=== PATIENT | female | born 1995 | race Two or more races ===

== ENCOUNTER → 2024-11-20 | Outpatient (CLI) | payer BC, SELFPAY ==
[2024-11-21 07:18] LABS: BVAG Candida Negative (Negative); Bacterial Vaginosis Markers Negative (Negative); Candida glabrata Negative (Negative); Candida krusei PCR Negative (Negative); Trichomonas Negative (Negative)
== END | disposition home or self-care (01) ==
LOC: SLDO 15:47
PROVIDERS: Referring Provider Physician Assistant Medical; Visit Provider Physician Assistant Medical
DX: A59.01 Trichomonal vulvovaginitis (principal); B37.89 Other sites of candidiasis; N76.0 Acute vaginitis
CPT/HCPCS: 81514

== ENCOUNTER 2024-12-02 21:54 | Emergency (ER) | payer BC, SELFPAY ==
[2024-12-02 21:55] VITALS: BMI 47.8
[2024-12-02 22:09] VITALS: BP 136/92; PULSE 109; RESP 20; TEMP 36.7; O2SAT 98
--- NOTE | 2024-12-02 22:10 | XR_ITS ---
Examination: Complete OB ultrasound, less than 14 weeks, transabdominal Date and time of exam: December 02, 2024 1019 hrs. Indications: Onset pelvic cramping today Technique: Obstetrical ultrasound images less than 14 weeks performed via transabdominal imaging Findings: A normal shaped single intrauterine gestation is present in the uterus. CRL 3.6 cm corresponds to 10 weeks 4 days gestational age Cardiac motion 171 BPM Ultrasonographic survey of visible and placental structures unremarkable. Amniotic fluid volume appears appropriate for this estimated gestational age. Right ovary obscured by bowel gas Left ovary 3.1 arterial flow Impression:. Viable intrauterine gestation 10 weeks 4 days
--- NOTE | 2024-12-02 22:11 | PD.EDRME ---
Rapid Medical Screening Exam RME Arrival date/time: 12/02/24 21:54 29 yo f present to ED for c/o n/v/d, + 10 week I have greeted and performed a focused initial assessment of this patient. A comprehensive ED assessment and evaluation of the patient, analysis of all test results, and completion of the medical decision making process will be conducted by additional ED providers. Chief Complaint: Nausea/Vomiting/Diarrhea Time Seen by Provider: 12/02/24 21:57 Vital signs: Vital Signs Temperature 98.1 F 12/02/24 22:09 Pulse Rate 109 H 12/02/24 22:09 Respiratory Rate 20 12/02/24 22:09 Blood Pressure 136/92 H 12/02/24 22:09 Pulse Oximetry (%) 98 12/02/24 22:09 Oxygen Delivery Method Room Air 12/02/24 22:09
[2024-12-02 22:25] LABS: Basophils % (Auto) 0 % (0-2.5); Eosinophils % (Auto) 0 % (0-10); Hematocrit 38.4 % (36.0-46.0); Hemoglobin 12.9 g/dL (12.0-16.0); Immature Granulocytes % (Auto) 0 % (0-0); Immature Granulocytes Auto 0.04 Thou/mm3 (0.00-0.00); Lymphocytes % (Auto) 6 % (10-50); Mean Corpuscular HGB Conc 33.6 g/dl (31.0-37.0); Mean Corpuscular Hemoglobin 28.5 pg (25.0-35.0); Mean Corpuscular Volume 85 fL (80-100); Monocytes # (Auto) 0.3 Thou/mm3 (0.0-0.8); Monocytes % (Auto) 2 % (0-12); Neutrophils # (Auto) 14.1 Thou/mm3 (1.8-7.7); Neutrophils % (Auto) 91 % (37-80); Nucleated Red Blood Cell % 0 /100 WBC (0); Platelet Count 233 Thou/mm3 (140-440); RDW Standard Deviation 44.5 fL (36.4-46.3); Red Blood Count 4.53 Miln/mm3 (4.00-5.20); White Blood Count 15.5 Thou/mm3 (3.6-11.0)
[2024-12-02 22:55] LABS: Alanine Aminotransferase 37 U/L (10-49); Albumin, Serum 4.1 gm/dL (3.5-5.0); Albumin/Globulin Ratio 1.4 (1.2-2.2); Alkaline Phosphatase 90 U/L (46-116); Anion Gap 8 (7-16); Aspartate Amino Transferase 21 U/L (0-34); BUN/Creatinine Ratio 12 Ratio (12-20); Bilirubin,Total 0.4 mg/dL (0.3-1.2); Blood Urea Nitrogen 7 mg/dL (9-23); Calcium 8.8 mg/dL (8.3-10.6); Calcium (Corrected) 8.8 mg/dL (8.5-10.1); Carbon Dioxide 23.2 mMol/L (20.0-31.0); Chloride 107 mMol/L (98-107); Creatinine (Component) 0.6 mg/dL (0.6-1.3); Estimated Creatinine Clearance 178.8 mL/min (>60); Globulin 2.9 gm/dL (2.3-3.5); Glucose 114 mg/dL (74-106); Osmolality,Calculated 274 (275-295); Potassium 3.8 mMol/L (3.4-5.1); Sodium 138 mMol/L (136-145); eGFR > 60 See Note
[2024-12-02] MEDS: SODIUM CHLORIDE 0.9% 1000 ML 1,000 ML 999 ML IV (23:12)
[2024-12-02] MEDS: METOCLOPRAMIDE INJ 5 MG/ML VIAL 2 ML 10 MG IVP (23:13)
[2024-12-02 23:17] VITALS: BP 109/64; PULSE 106; RESP 20; TEMP 38.1; O2SAT 98
[2024-12-02 23:19] LABS: Beta HCG,Quantitative 47573 mIU/mL (<5.0)
--- NOTE | 2024-12-02 23:21 | PD.EDNV ---
Nausea/Vomit./Diarrhea-RME/HPI General Chief complaint: Nausea/Vomiting/Diarrhea Stated complaint: ABD PAIN, N/V PT 10WKS PREG Time Seen by Provider: 12/02/24 21:57 Arrival date/time: 12/02/24 21:54 Limitations: no limitations RME / HPI RME / HPI Narrative: 12/02/24 21:54 29 yo f present to ED for c/o n/v/d, + 10 week I have greeted and performed a focused initial assessment of this patient. A comprehensive ED assessment and evaluation of the patient, analysis of all test results, and completion of the medical decision making process will be conducted by additional ED providers. ----- Dr. Small's Main ED Evaluation: 29yo female who is 10 weeks gestation presents to the ED for complaints of N/V/D. Patient states her symptoms started at 1300, reporting she's had persistent N/V/D since. She states she has been unable to keep anything down, so she came in for evaluation. Here in the ED, patient is febrile. She denies any dysuria, shortness of breath or any other associated symptoms. Patient states her kids at home are sick with similar symptoms. LMP was 08/28/24. Related Data Home Medications ?Medication ?Instructions ?Recorded ?Confirmed vit no.95-ferrous 1 tab PO QDAY 05/19/19 04/18/23 fumarate 28 mg-folic acid 800 mcg tablet () calcium 600 mg (as 1 tab PO BID 04/18/23 04/18/23 carbonate)-vitamin D3 10 mcg (400 unit) tablet Previous Rx's ?Medication ?Instructions ?Recorded docusate sodium 100 mg capsule 100 mg PO BID #40 caps 04/19/23 (Colace) hydrocodone 5 mg-acetaminophen 325 1 tab PO Q6H PRN pain (scale score 04/19/23 mg tablet 7-10) #20 tabs ibuprofen 600 mg tablet 600 mg PO Q8H PRN pain (scale 04/19/23 score 4-6) #15 tabs cephalexin 500 mg capsule 500 mg PO TID #21 caps 12/03/24 ondansetron 4 mg disintegrating 4 mg PO Q6H PRN nausea and 12/03/24 tablet vomiting #14 tabs Allergies Allergy/AdvReac Type Severity Reaction Status Date / Time No Known Allergies Allergy Verified 04/19/23 12:35 Review of Systems Review of Systems Systems Reviewed: All systems reviewed, normal except as documented Past Medical History Past Medical History NEUROLOGIC: Negative Neurological Disorders or Seizures CARDIAC: Negative Cardiac Disorders or Congestive Heart Failure RESPIRATORY: Negative Chronic Obstructive Pulmonary Disease (COPD), Asthma or Pneumonia GASTROINTESTINAL: Positive Gastrointestinal Disorders and Gall Bladder Disease; Negative Hepatitis or Colorectal Cancer GENITOURINARY: Negative Genitourinary Disorders, Renal Disease or Prostate Cancer REPRODUCTIVE: Positive Previous Pregnancies; Negative Breast Cancer, Pelvic Inflammatory Disease or Testicular Cancer MUSCULOSKELETAL: Negative Musculoskeletal Disorders or Bone Cancer ENDOCRINE: Negative Endocrine Disorders, Diabetes Mellitus Type 1 or Diabetes Mellitus Type 2 HEMATOLOGIC: Negative Blood Disorders PSYCHO/SOCIAL: Negative Depression or Anxiety OTHER HISTORY: Positive Hospitalization (CHILDBIRTHx3); Negative Autoimmune Disease, Down Syndrome, Developmental Delay, Shingles, Falls, Blood Transfusions, Blood Transfusion Reaction, Anesthesia Reactions, Organ Transplant, Chemotherapy, Radiation Therapy, Hyperbaric Therapy, MRSA, VRSA, Vancomycin-Resistant Enterococci, Human Immunodeficiency Virus (HIV), Chicken Pox, Measles, Mumps, Rubella (Upper [place] Measles), Pertussis, Clostridium Difficile, Cancer, Breast Cancer, Cervical Cancer, Colorectal Cancer, Lung Cancer, Ovarian Cancer, Prostate Cancer or Testicular Cancer Family History FAMILY HISTORY: Positive Family Respiratory Disorders (father; valley fever) and Family Cardiac Disorders (mother high blood pressure); Negative Family Psychiatric Problems, Family Gastrointestinal Problems, Family Cancer, Family Surgery or Family Anesthesia Reaction Surgical History SURGICAL: Negative Cardiac Surgery, Endocrine Surgery, Abdominal Surgery, Nephrectomy, Joint Replacement, Neurologic Surgery, Section or Organ Transplant Social History SMOKING STATUS: Never smoker SECOND HAND EXPOSURE: No SUBSTANCE USE: does not use ED Exam General Limitations: Present no limitations General appearance: Present alert, in no apparent distress and other (is actively vomiting) Head Head exam: Present atraumatic Eye Eye exam: Present normal appearance, PERRL and EOMI ENT ENT exam: Present normal exam, normal oropharynx and mucous membranes dry Neck Neck exam: Present normal inspection, full ROM and trachea midline Chest Chest inspection: Present normal inspection and symmetric chest wall rise Respiratory Respiratory exam: Present normal lung sounds bilaterally Cardiovascular Cardiovascular exam: Present regular rate, normal rhythm and normal heart sounds Abdominal Exam Abdominal exam: Present soft and normal bowel sounds Extremities Exam Extremities exam: Present normal inspection and full ROM Back Exam Back exam: Present normal inspection and full ROM Neurological Exam Neurological exam: Present alert, oriented X3 and CN II-XII intact Psychiatric Psychiatric exam: Present normal affect and normal mood Skin Skin exam: Present warm, dry, intact and normal color Course Course Course Narrative: 2339: Sepsis alert initiated. Orders made at this time are congruent with ED Adult Sepsis Order List. Re-evaluation is to be completed. 2311: NS IVF started. Quality Measures none Orders Category Date Time Status Bedside COVID-19 Antigen Test NOW Care 12/02/24 23:20 Completed Bedside Influenza A&B Antigen Test NOW Care 12/02/24 23:20 Completed Insert IV STAT Care 12/02/24 22:10 Completed US OB <= 14 weeks fetus Stat Exams 12/02/24 22:10 Completed ABO/RH Type Stat Lab 12/02/24 22:16 Completed Beta HCG,Quantitative Stat Lab 12/02/24 22:16 Completed Blood Culture (Lab) Stat Lab 12/02/24 23:50 Results CBC Stat Lab 12/02/24 22:16 Completed CMP [Comprehensive Metabolic Panel] Stat Lab 12/02/24 22:16 Completed Lactic Acid [Lactate (Lactic Acid)] Stat Lab 12/02/24 23:55 Completed PCT [Procalcitonin] Stat Lab 12/02/24 23:55 Completed UA [Urinalysis] Stat Lab 12/03/24 00:14 Completed UA [Urinalysis] Stat Lab 12/03/24 01:45 Completed Metoclopramide Inj [Reglan Inj] Med 12/02/24 22:10 Discontinued 10 mg IVP X1 ONE Ondansetron Inj [Zofran Inj] Med 12/03/24 01:50 Discontinued 4 mg IV X1 ONE Sodium Chloride 0.9% 1000 ml [Ns] 1,000 ml Med 12/02/24 22:10 Discontinued IV 999 mls/hr Sodium Chloride 0.9% 1000 ml [Ns] 1,000 ml Med 12/03/24 01:44 Discontinued IV 999 mls/hr cefTRIAXone/D5w 1gm IV premix [Rocephin/D5w 1gm IV Med 12/03/24 02:46 Discontinued premix] 1 gm in 50 ml IV X1 Vital Signs Vital signs: Vital Signs Temperature 98.1 F 12/02/24 22:09 Pulse Rate 109 H 12/02/24 22:09 Respiratory Rate 20 12/02/24 22:09 Blood Pressure 136/92 H 12/02/24 22:09 Pulse Oximetry (%) 98 12/02/24 22:09 Oxygen Delivery Method Room Air 12/02/24 22:09 Nausea/Vomiting/Diarrhea MDM Narrative MDM Narrative:: Scribe Attestation: 12/02/24 Kady Sexton am scribing for and in the presence of Dr. Small. Patient data External records reviewed:: [facility] previous records (Per chart review, patient has no relevant previous ED visits.) Clinical information provided by:: patient Social determinants that could affect healthcare access:: none Patient has the following chronic illnesses:: none How is presenting disease/condition affected by chronic disease/condition?: no chronic disease Evaluation data The following diagnostics were reviewed and interpreted by me:: lab results and radiology exam(s) Lab and/or radiology exams considered but not ordered:: none Interpretation Summary: WBC count is elevated at 15.5, CMP is normal, HCG is negative, according to my interpretation. --------- Medications / Prescriptions Medications / Prescriptions considered but not ordered:: none Medication administrations:: Medication Administration History Discontinued Medications Sodium Chloride (Ns) 1,000 mls @ 999 mls/hr IV .Q1H1M ONE Stop: 12/02/24 23:10 Last Infusion: 12/03/24 00:18 Dose: Infused Documented By: Admin: 12/02/24 23:12 Dose: 999 mls/hr Documented By: GM Sodium Chloride (Ns) 1,000 mls @ 999 mls/hr IV .Q1H1M ONE Stop: 12/03/24 02:44 Last Infusion: 12/03/24 02:46 Dose: Infused Documented By: Admin: 12/03/24 01:52 Dose: 999 mls/hr Documented By: BD Ceftriaxone Sodium/Dextrose (Rocephin/D5w 1gm Iv Premix) 1 gm in 50 mls @ 100 mls/hr IV X1 ONE Stop: 12/03/24 03:15 Last Admin: 12/03/24 02:54 Dose: 100 mls/hr Documented By: BD Metoclopramide HCl (Metoclopramide Inj 5 Mg/Ml Vial 2 Ml) 10 mg IVP X1 ONE; Protocol Stop: 12/02/24 22:11 Last Admin: 12/02/24 23:13 Dose: 10 mg Documented By: GM Ondansetron HCl (Ondansetron Inj 2 Mg/Ml Inj 2 Ml) 4 mg IV X1 ONE; Protocol Stop: 12/03/24 01:51 Last Admin: 12/03/24 01:56 Dose: 4 mg Documented By: PEGGY see above Consultations Consultation(s) initiated? (list below): No Diagnosis Nausea Differential Diagnosis: dehydration and other (viral syndrome, electrolyte abnormality) Most likely diagnosis given after review of the tests above:: see clinical impression below Admission Indicated Admission indicated?: not indicated Admission Request Was there a request for admission?: No Disposition Plan Disposition Plan: other (specify) (Signed out pending CT scan to Dr. Sotelo) Discharge Plan Plan Patient Disposition: HOME (Self Care) Patient condition on transfer: Stable Prescriptions/Referrals Prescriptions/Med Rec: New cephalexin 500 mg capsule 500 mg PO TID Qty: 21 0RF ondansetron 4 mg tablet,disintegrating 4 mg PO Q6H PRN (Reason: nausea and vomiting) Qty: 14 0RF No Action PNV cmb#95-ferrous fumarate-FA [] 28 mg iron- 800 mcg Tablet 1 tab PO QDAY calcium carbonate-vitamin D3 600 mg-10 mcg (400 unit) tablet 1 tab PO BID Patient Comments: TAKE 1 TABLET BY MOUTH TWICE A DAY docusate sodium [Colace] 100 mg capsule 100 mg PO BID Qty: 40 0RF hydrocodone-acetaminophen 5-325 mg tablet 1 tab PO Q6H MDD 4 PRN (Reason: pain (scale score 7-10)) Qty: 20 0RF ibuprofen 600 mg tablet 600 mg PO Q8H PRN (Reason: pain (scale score 4-6)) Qty: 15 0RF Referrals: Malaika Tan PA-C [Primary Care Provider] - In 1 week Problem List Clinical Impression: Dehydration, Vomiting and diarrhea Patient/Caregiver Discharge Instructions Education Materials: ED Dehydration (Adult), ED Diet for Vomiting or ..., ED CYSTITIS Female Adult Additional Instructions: General Adult Discharge Instructions DISCHARGE INSTRUCTIONS Even though you have been discharged from the Emergency Department, there are several things that you should do to ensure that you receive proper care: 1. DO READ your discharge instructions as these contain important information concerning your medical care. 2. If medication has been prescribed for your condition, fill the prescription as soon as possible and follow the directions on the medication. 3. RETURN AT ONCE TO THE EMERGENCY DEPARTMENT if you have any problems or concerns. These include but are not limited to fever, worsening pain(belly, chest, head, etc?), worsening shortness of breath, uncontrollable bleeding, inability to tolerate food and water, or any condition that makes you question your well-being. Also, if your symptoms do not improve in the next 12-24 hours, return to the ER or seek medical care immediately. 4. Be sure to follow up with your regular physician or specialist as instructed at discharge as this is the best way to ensure that you receive the very best of care. If you do not have a primary care physician, please contact a physician group and make an appointment. 5. Please visit [email or web address] for coupons regarding your prescriptions. It is a free service for you to use and can help reduce the cost of your medication. We would like to thank you for coming today and our hope is that we served you and your family well during your stay Print Language: Spanish Stand Alone Forms: Nyla Award Info., Patient Portal Info Letter
--- NOTE | 2024-12-02 23:41 | PRELIM_ITS ---
Obstetric ultrasound (transabdominal) with Doppler and wave Doppler spectral analysis. December 02, 2024 2219 hours Clinical history: Abdomen cramping Technique: Real-time ultrasound was performed using Duplex scanning including arterial inflow, venous outflow, color and spectral Doppler analysis of both ovaries. Comparison: None. Findings: There is an intrauterine gestation with a single live fetus of mean gestational age 10 weeks and 5 days (CRL= 3.85 cm). cardiac activity is present at heart rate of 171 beats per minute. The yolk sac measures 0.4 cm. The uterus measures 13.7 x 6.5 x 7.5 cm. The right ovary was not visualized. The left ovary measures 3.1 x 1.6 x 1.6 cm and is unremarkable. Normal blood flow in the left ovary with normal wave Doppler spectral analysis. There is no free fluid in the pelvis. Impression: Intrauterine gestation with a single live fetus of mean gestational age 10 weeks and 5 days. Report Electronically Signed By: Mendoza Casanova 12/02/2024 11:41:02 PM [EST]
--- NOTE | 2024-12-02 23:41 | PC.NURSE ---
maternal sepsis called at 2340
--- NOTE | 2024-12-02 23:53 | PC.NURSE ---
ob nurse mouna came down to check heart tones
--- NOTE | 2024-12-02 23:55 | PC.NURSE ---
Addendum entered by Meghan Rowe RN, RN 12/03/24 00:13: Primary nurse notified. Original Note: Came from labor and delivery to assess heart tones on patient. Unable to audibly detect heart tones due to maternal size and gestational age of fetus. Charge nurse, Theron, stated that ultrasound had resulted.
[2024-12-03 00:22] LABS: Collection Type, Urine Voided
[2024-12-03 00:44] LABS: Bacteria,Urine 2+; Bilirubin,Urine Negative (Negative); Blood,Urine Trace (Negative); Clarity,Urine Turbid (Clear/Hazy); Color,Urine Yellow (Lt Yel-Yel); Glucose, Urine Negative (Negative); Ketones,Urine 4+ (Negative); Leukocyte Esterase,Urine Positive (Negative); Nitrite,Urine Negative (Negative); PH,Urine 6.5 (5.0-7.0); Protein,Urine 1+ (Neg - Trace); RBC,Urine 49 /hpf (0-3); Specific Gravity,Urine 1.039 (1.001-1.035); Squamous Epithelial Cell,Urine 21 /hpf (0-5); Urobilinogen,Urine Negative mg/dL (0.0-1.0); WBC,Urine 22 /hpf (0-5)
[2024-12-03 00:56] LABS: Procalcitonin < 0.04 ng/ml (0.0-0.49)
[2024-12-03 01:48] VITALS: BP 101/68; PULSE 111; RESP 16; TEMP 37.1; O2SAT 98
[2024-12-03] MEDS: SODIUM CHLORIDE 0.9% 1000 ML 1,000 ML 999 ML IV (01:52)
[2024-12-03] MEDS: ONDANSETRON INJ 2 MG/ML INJ 2 ML 4 MG IV (01:56)
[2024-12-03 02:00] LABS: Collection Type, Urine Clean Catch
[2024-12-03 02:19] LABS: Bacteria,Urine Rare; Bilirubin,Urine Negative (Negative); Blood,Urine Negative (Negative); Clarity,Urine Turbid (Clear/Hazy); Color,Urine Yellow (Lt Yel-Yel); Glucose, Urine Negative (Negative); Ketones,Urine 4+ (Negative); Leukocyte Esterase,Urine Positive (Negative); Nitrite,Urine Negative (Negative); Protein,Urine 1+ (Neg - Trace); RBC,Urine 12 /hpf (0-3); Specific Gravity,Urine 1.034 (1.001-1.035); Squamous Epithelial Cell,Urine 3 /hpf (0-5); Urobilinogen,Urine Negative mg/dL (0.0-1.0); WBC,Urine 6 /hpf (0-5)
[2024-12-03] MEDS: cefTRIAXone/D5w 1gm IV premix 1 GM/50 ML BAG IV (02:54)
[2024-12-03 03:20] VITALS: BP 102/58; PULSE 107; RESP 16; TEMP 37.2; O2SAT 100
== END 2024-12-03 03:23 | disposition home or self-care (01) ==
PROVIDERS: Physician Assistant; Emergency Provider Emergency Medicine; PCP Physician Assistant
DX: O99.281 Endocrine, nutritional and metabolic diseases complicating pregnancy, first trimester (principal); E86.0 Dehydration; O21.9 Vomiting of pregnancy, unspecified; O26.891 Other specified pregnancy related conditions, first trimester; R19.7 Diarrhea, unspecified; Z3A.10 10 weeks gestation of pregnancy; D72.829 Elevated white blood cell count, unspecified
CPT/HCPCS: 36415; 76801; 80053; 81001; 83605; 84145; 84702; 85025; 86900; 86901; 87040; 87400; 87811; 96361; 96374; 99284; J0696; J2405; J2765; J7030

== ENCOUNTER → 2024-12-07 | Outpatient (CLI) | payer BC, SELFPAY ==
[2024-12-07 16:39] LABS: Misc Send Out* See Sep Rpt
[2024-12-07 17:27] LABS: Basophils % (Auto) 0 % (0-2.5); Eosinophils # (Auto) 0.1 Thou/mm3 (0.0-0.5); Eosinophils % (Auto) 1 % (0-10); Hematocrit 38.5 % (36.0-46.0); Hemoglobin 12.9 g/dL (12.0-16.0); Immature Granulocytes % (Auto) 0 % (0-0); Immature Granulocytes Auto 0.02 Thou/mm3 (0.00-0.00); Lymphocytes # (Auto) 2.9 Thou/mm3 (1.0-4.8); Lymphocytes % (Auto) 34 % (10-50); Mean Corpuscular HGB Conc 33.5 g/dl (31.0-37.0); Mean Corpuscular Hemoglobin 28.3 pg (25.0-35.0); Mean Corpuscular Volume 84 fL (80-100); Monocytes # (Auto) 0.4 Thou/mm3 (0.0-0.8); Monocytes % (Auto) 4 % (0-12); Neutrophils # (Auto) 5.3 Thou/mm3 (1.8-7.7); Neutrophils % (Auto) 61 % (37-80); Nucleated Red Blood Cell % 0 /100 WBC (0); Platelet Count 285 Thou/mm3 (140-440); RDW Standard Deviation 44.4 fL (36.4-46.3); Red Blood Count 4.56 Miln/mm3 (4.00-5.20); White Blood Count 8.7 Thou/mm3 (3.6-11.0)
[2024-12-07 17:39] LABS: Glucose Estimated Average 103 mg/dL (80-131); Hemoglobin A1C 5.2 % Hgb (4.8-6.0)
[2024-12-07 17:44] LABS: Creatinine (Component) 0.6 mg/dL (0.6-1.3); Glucose 100 mg/dL (74-106); eGFR > 60 See Note
[2024-12-07 17:55] LABS: Hepatitis B Surface Antigen Non Reactive (Non React); Rubella, IgG Antibody Reactive (Immune)
[2024-12-07 18:09] LABS: HIV (1&2) Antibody Rapid Non-Reactive
[2024-12-07 18:32] LABS: Beta HCG,Quantitative 43777 mIU/mL (<5.0)
[2024-12-12 15:31] LABS: HCV RNA, PCR <15 NOT DETECTED IU/mL
[2024-12-13 06:28] LABS: HCV RNA, PCR Log IU <1.18 NOT DETECTED Log IU/mL; HIV Ag/Ab, 4th Gen NON-REACTIVE
== END | disposition home or self-care (01) ==
PROVIDERS: PCP Physician Assistant; Referring Provider Specialist; Visit Provider Specialist
DX: Z34.81 Encounter for supervision of other normal pregnancy, first trimester (principal)
CPT/HCPCS: 36415; 82565; 82947; 83036; 84702; 85025; 86703; 86762; 86850; 86900; 86901; 87340; 87389; 87522

== ENCOUNTER → 2024-12-07 | Outpatient (CLI) | payer BC, SELFPAY ==
[2024-12-07 15:58] LABS: Collection Type, Urine Clean Catch; WBC,Urine 0 /hpf (0-5)
[2024-12-07 16:45] LABS: Amphetamine/Methamp Scrn,U Negative (Negative); Barbiturate Screen,Urine Negative (Negative); Benzodiazepines Screen,Urine Negative (Negative); Benzoylecgonine Screen, Ur Negative (Negative); Fentanyl Screen,Urine Negative (Negative); Opiate Screen,Urine Negative (Negative); THC Screen,Urine Negative (Negative)
[2024-12-07 17:04] LABS: Amorphous Crystals,Urine Present (Absent); Bilirubin,Urine Negative (Negative); Blood,Urine Negative (Negative); Color,Urine Yellow (Lt Yel-Yel); Glucose, Urine Negative (Negative); Ketones,Urine 1+ (Negative); Leukocyte Esterase,Urine Negative (Negative); Nitrite,Urine Negative (Negative); Protein,Urine Trace (Neg - Trace); RBC,Urine 1 /hpf (0-3); Squamous Epithelial Cell,Urine 2 /hpf (0-5); Urobilinogen,Urine Negative mg/dL (0.0-1.0)
[2024-12-07 17:06] LABS: Clarity,Urine Cloudy (Clear/Hazy)
== END | disposition home or self-care (01) ==
PROVIDERS: PCP Physician Assistant Medical; Referring Provider Physician Assistant Medical; Visit Provider Physician Assistant Medical
DX: Z34.81 Encounter for supervision of other normal pregnancy, first trimester (principal)
CPT/HCPCS: 80307; 81001; 87086

== ENCOUNTER 2025-01-18 09:30 | Emergency (ER) | payer BC, SELFPAY ==
[2025-01-18 09:31] VITALS: BMI 46.0
[2025-01-18 09:43] VITALS: BP 126/83; PULSE 101; RESP 16; TEMP 37.1; O2SAT 97
--- NOTE | 2025-01-18 09:50 | XR_ITS ---
Examination: Complete OB ultrasound greater than 14 weeks Date and time of exam: January 18, 2025 0956 hours INDICATIONS: Pelvic pain today Findings: Viable intrauterine single fetus with single amniotic sac presentation variable Cardiac motion 153 BPM Placenta maternal right grade 0 Umbilical cord insertion 3 vessel seen Amniotic fluid volume adequate spine maternal left Cervix 5.9 cm Ovaries obscured by bowel gas. Composite estimated gestational age based on BPD, head circumference, abdominal circumference, femur length is 17 weeks 3 days Estimated weight 194 g. Survey of intracranial anatomy, spinal anatomy, abdominal anatomy, four-chamber heart performed with no abnormalities identified. Impression: Viable intrauterine gestation variable presentation.
--- NOTE | 2025-01-18 09:50 | PD.EDRME ---
Rapid Medical Screening Exam RME Arrival date/time: 01/18/25 09:30 29-year-old female approximately 17 weeks presents emerged department t today for complaints of abdominal pain, nausea and diarrhea Chief Complaint: Abdominal Pain Time Seen by Provider: 01/18/25 09:38 Vital signs: Vital Signs Temperature 98.8 F 01/18/25 09:43 Pulse Rate 101 H 01/18/25 09:43 Respiratory Rate 16 01/18/25 09:43 Blood Pressure 126/83 01/18/25 09:43 Pulse Oximetry (%) 97 01/18/25 09:43 Oxygen Delivery Method Room Air 01/18/25 09:43
[2025-01-18 10:53] LABS: Collection Type, Urine Clean Catch
[2025-01-18 10:58] LABS: Basophils % (Auto) 0 % (0-2.5); Eosinophils % (Auto) 0 % (0-10); Hematocrit 34.2 % (36.0-46.0); Immature Granulocytes % (Auto) 0 % (0-0); Immature Granulocytes Auto 0.04 Thou/mm3 (0.00-0.00); Lymphocytes # (Auto) 1.8 Thou/mm3 (1.0-4.8); Lymphocytes % (Auto) 14 % (10-50); Mean Corpuscular HGB Conc 35.1 g/dl (31.0-37.0); Mean Corpuscular Hemoglobin 29.3 pg (25.0-35.0); Mean Corpuscular Volume 83 fL (80-100); Monocytes # (Auto) 0.6 Thou/mm3 (0.0-0.8); Monocytes % (Auto) 5 % (0-12); Neutrophils # (Auto) 9.8 Thou/mm3 (1.8-7.7); Neutrophils % (Auto) 80 % (37-80); Nucleated Red Blood Cell % 0 /100 WBC (0); Platelet Count 226 Thou/mm3 (140-440); RDW Standard Deviation 43.2 fL (36.4-46.3); White Blood Count 12.3 Thou/mm3 (3.6-11.0)
[2025-01-18 11:00] LABS: Bacteria,Urine Rare; Bilirubin,Urine Negative (Negative); Blood,Urine 1+ (Negative); Color,Urine Yellow (Lt Yel-Yel); Glucose, Urine Negative (Negative); Ketones,Urine 2+ (Negative); Leukocyte Esterase,Urine Negative (Negative); Nitrite,Urine Negative (Negative); Protein,Urine Negative (Neg - Trace); RBC,Urine 1 /hpf (0-3); Specific Gravity,Urine 1.015 (1.001-1.035); Squamous Epithelial Cell,Urine 3 /hpf (0-5); Urobilinogen,Urine Negative mg/dL (0.0-1.0); WBC,Urine 1 /hpf (0-5)
[2025-01-18 11:13] LABS: Clarity,Urine Hazy (Clear/Hazy)
[2025-01-18 11:46] LABS: Alanine Aminotransferase 29 U/L (10-49); Albumin/Globulin Ratio 1.5 (1.2-2.2); Alkaline Phosphatase 82 U/L (46-116); Anion Gap 10 (7-16); Aspartate Amino Transferase 22 U/L (0-34); BUN/Creatinine Ratio 10 Ratio (12-20); Bilirubin,Total 0.2 mg/dL (0.3-1.2); Blood Urea Nitrogen < 5 mg/dL (9-23); Calcium 8.8 mg/dL (8.3-10.6); Calcium (Corrected) 8.8 mg/dL (8.5-10.1); Carbon Dioxide 21.9 mMol/L (20.0-31.0); Chloride 101 mMol/L (98-107); Creatinine (Component) 0.5 mg/dL (0.6-1.3); Estimated Creatinine Clearance 209.7 mL/min (>60); Globulin 2.7 gm/dL (2.3-3.5); Glucose 93 mg/dL (74-106); Lipase 30 U/L (12-53); Osmolality,Calculated 263 (275-295); Potassium 3.7 mMol/L (3.4-5.1); Sodium 133 mMol/L (136-145); Total Protein 6.7 gm/dL (5.7-8.2); eGFR > 60 See Note
[2025-01-18 12:05] LABS: Beta HCG,Quantitative 13045 mIU/mL (<5.0)
[2025-01-18 12:35] VITALS: BP 117/81; PULSE 97; RESP 16; TEMP 36.9; O2SAT 98
--- NOTE | 2025-01-18 12:59 | EDNOTE_ITS ---
<Statement entered by Maria Isabel Pérez MD - 01/29/25 01:04> As co-signing physician, I was present and available for consult prn. I concur with the plan and care as documented by the midlevel provider. ED OB Contraction Preg RMI/HPI General Chief complaint: Abdominal Pain Stated complaint: 17WK PREG, C/O ABD PAIN WITH DIARRHEA Time Seen by Provider: 01/18/25 09:38 Arrival date/time: 01/18/25 09:30 RME / HPI RME / HPI Narrative: 29-year-old female patient about 17 weeks , came in for evaluation regarding diarrhea. Patient's been having diarrhea on and off for the last 3 days, associated with vomiting on and off. Patient denies any vaginal bleeding spotting pelvic pain but complaining of on and off cramping also. Patient denies any fall denies any fever denies any other complaints denies any travel outside the [place] no blood noted on the vomiting or diarrhea. Related Data Home Medications ?Medication ?Instructions ?Recorded ?Confirmed vit no.95-ferrous 1 tab PO QDAY 05/19/1903/23 fumarate 28 mg-folic acid 800 mcg tablet () calcium 600 mg (as 1 tab PO BID 04/18/23 carbonate)-vitamin D3 10 mcg (400 unit) tablet Previous Rx's ?Medication ?Instructions ?Recorded docusate sodium 100 mg capsule 100 mg PO BID #40 caps 04/19/23 (Colace) hydrocodone 5 mg-acetaminophen 325 1 tab PO Q6H PRN pa in (scale score 04/19/23 mg tablet 7-10) #20 tabs ibuprofen 600 mg tablet 600 mg PO Q8H PRN pain (scal e 04/19/23 score 4-6) #15 tabs cephalexin 500 mg capsule 500 mg PO TID #21 caps 12/03 ondansetron 4 mg disintegrating 4 mg PO Q6H PRN nausea and 12/03/24 tablet vomiting #14 tabs metoclopramide HCl 10 mg tablet 10 mg PO Q6H PRN nause a and 01/18/25 (Reglan) vomiting #10 tabs Allergies Allergy/AdvReac Type Severity Reaction Status Date / Time No Known Allergies Allergy Verified 01/18/25 09:33 Review of Systems Review of Systems Narrative Review of Systems: Review of system reviewed and within normal limits except mentioned in HPI ED Exam Narrative Physical exam: VITAL SIGNS: Reviewed. GENERAL APPEARANCE: Alert and interactive, follows commands, no acute distress, HEAD AND FACE: Non-traumatic. ENT: PERRL, pink conjunctivitis, eyelid no trauma, Mucous membrane moist. NECK: Supple, nontender, no nuchal rigidity. CHEST: No tenderness, no crepitus, no paradoxical movement, no retractions. LUNGS: Clear, well ventilated, symmetric, no rales, no wheezing, no ronchi, no stridor, good breath sounds bilaterally. HEART: Regular rate, regular rhythm, no murmur, no gallops. ABDOMEN: Soft, positive bowel sounds, nondistended, no guarding, nontender, no rebound, no masses, RECTAL: Deferred. GENITAL: Deferred. NEUROLOGICAL: Gross motor function intact sensory function intact, Appropriate for age. MUSCULOSKELETAL: low back nontender, full range of motion. EXTREMITIES: Nontender, full range of motion. SKIN: Color pink, dry, no rash, no lacerations, no abrasions, no contusions. LYMPHATICS: Deferred. Course Quality Measures none Orders Category Date Time Status US OB >= 14 weeks Fetus Stat Exams 01/18/25 09:50 Completed ABO/RH Type Stat Lab 01/18/25 10:50 Completed Beta HCG,Quantitative Stat Lab 01/18/25 10:50 Completed CBC Stat Lab 01/18/25 10:50 Completed Comprehensive Metabolic Panel Stat Lab 01/18/25 10:50 Completed Lipase Stat Lab 01/18/25 10:50 Completed UA [Urinalysis] Stat Lab 01/18/25 10:40 Completed Urine Culture Stat Lab 01/18/25 10:40 Received Metoclopramide [Reglan] Med 01/18/25 12:52 Discontinued 10 mg PO X1 ONE Vital Signs Vital signs: Vital Signs Temperature 98.8 F 01/18/25 09:43 Pulse Rate 101 H 01/18/25 09:43 Respiratory Rate 16 01/18/25 09:43 Blood Pressure 126/83 01/18/25 09:43 Pulse Oximetry (%) 97 01/18/25 09:43 Oxygen Delivery Method Room Air 01/18/25 09:43 OB/Uterine Contractions MDM Narrative MDM Narrative:: 29-year-old female patient about 17 weeks , came in for evaluation regarding diarrhea. Patient's been having diarrhea on and off for the last 3 days, associated with vomiting on and off. Patient denies any vaginal bleeding spotting pelvic pain but complaining of on and off cramping also. Patient denies any fall denies any fever denies any other complaints denies any travel outside the [place] no blood noted on the vomiting or diarrhea. Patient's workup today all came back with slight leukocytosis 12.3, CMP unremarkable urinalysis no UTI ultrasound showed single live intrauterine gestation about 17 weeks. No abnormality noted. Results discussed with the patient. Patient was noted to be tolerating p.o. fluids in the emergency room drinking almost a big bottle of Gatorade. Patient appears nontoxic and hemodynamically stable .Decision to discharge the patient. The patient/family was given an opportunity to ask questions and understood their discharge instructions. Discharge instructions specifically included follow up provider and time frame, current and/or new medications and possible side effects, indications for sooner follow up or return to the emergency department, and the expected course of current diagnosis. Patient reports feeling better as well and giving evidence of significant clinical improvement, I believe patient is now a candidate for discharge. Patient data External records reviewed:: None Clinical information provided by:: patient Social determinants that could affect healthcare access:: none Patient has the following chronic illnesses:: None How is presenting disease/condition affected by chronic disease/condition?: no chronic disease Evaluation data The following diagnostics were reviewed and interpreted by me:: lab results and radiology exam(s) Lab and/or radiology exams considered but not ordered:: None Interpretation Summary: See results MDM Medications / Prescriptions Medications or Prescriptions considered but not ordered:: None Reglan Medication administrations:: Medication Administration History Discontinued Medications Metoclopramide HCl (Metoclopramide 5 Mg Tablet) 10 mg PO X1 ONE Stop: 01/18/25 12:53 Last Admin: 01/18/25 13:01 Dose: 10 mg Reglan Consultations Consultation(s) initiated? (list below): No Diagnosis OB Contractions Differential Diagnosis: other (Nausea vomiting, gastroenteritis, ) Most likely diagnosis given after review of the tests above:: Gastroenteritis, Admission Indicated Explain why admission is indicated or not indicated:: None Admission Request Was there a request for admission?: No Disposition Plan Disposition Plan: Discharge Discharge Attestation Discharge Attestation: The patient and all family members were given an opportunity to ask questions and understood the discharge instructions. Discharge instructions specifically effects, indications for sooner follow up or return to the emergency department, and the expected course of current diagnosis. Patient condition: Stable Discharge Plan Plan Patient Disposition: HOME (Self Care) Discharge Disposition comment: Stable Prescriptions/Referrals Prescriptions/Med Rec: New metoclopramide HCl [Reglan] 10 mg tablet 10 mg PO Q6H PRN (Reason: nausea and vomiting) Qty: 10 0RF No Action PNV cmb#95-ferrous fumarate-FA [] 28 mg iron- 800 mcg Tablet 1 tab PO QDAY calcium carbonate-vitamin D3 600 mg-10 mcg (400 unit) tablet 1 tab PO BID Patient Comments: TAKE 1 TABLET BY MOUTH TWICE A DAY docusate sodium [Colace] 100 mg capsule 100 mg PO BID Qty: 40 0RF hydrocodone-acetaminophen 5-325 mg tablet 1 tab PO Q6H MDD 4 PRN (Reason: pain (scale score 7-10)) Qty: 20 0RF ibuprofen 600 mg tablet 600 mg PO Q8H PRN (Reason: pain (scale score 4-6)) Qty: 15 0RF cephalexin 500 mg capsule 500 mg PO TID Qty: 21 0RF ondansetron 4 mg tablet,disintegrating 4 mg PO Q6H PRN (Reason: nausea and vomiting) Qty: 14 0RF Referrals: Bean Pearson MD [Primary Care Provider] - In 1 week Problem List Clinical Impression: Gastroenteritis, and not yet delivered in second trimester Patient/Caregiver Discharge Instructions Discharge Activity: activity as tolerated Education Materials: ED Gastroenteritis, Noninfectious Additional Instructions: Thank you for the opportunity for serving you today. You are stable for discharged . You are advised to: Follow-up with your PCP in 1 to 2 days Return to ED for worsening of symptoms Increase oral fluids Take medication as prescribed as needed only for vomiting Print Language: Bruneian Stand Alone Forms: Nyla Award Info., Patient Portal Info Letter PA/LAST Supervising Physician FRED/LAST Supervising Physician: MD Savanah
[2025-01-18] MEDS: METOCLOPRAMIDE 5 MG TABLET 10 MG PO (13:01)
== END 2025-01-18 13:14 | disposition home or self-care (01) ==
PROVIDERS: Nurse Practitioner Primary Care; Emergency Provider Emergency Medicine; PCP Specialist
DX: O26.892 Other specified pregnancy related conditions, second trimester (principal); K52.9 Noninfective gastroenteritis and colitis, unspecified; Z3A.17 17 weeks gestation of pregnancy
CPT/HCPCS: 36415; 76805; 80053; 81001; 83690; 84702; 85025; 86900; 86901; 87086; 99284; A9270

== ENCOUNTER → 2025-02-05 | Outpatient (CLI) | payer BC, SELFPAY ==
[2025-02-05 16:56] LABS: Alanine Aminotransferase 28 U/L (10-49); Albumin, Serum 3.6 gm/dL (3.5-5.0); Albumin/Globulin Ratio 1.6 (1.2-2.2); Alkaline Phosphatase 90 U/L (46-116); Anion Gap 10 (7-16); Aspartate Amino Transferase 15 U/L (0-34); BUN/Creatinine Ratio 10 Ratio (12-20); Bilirubin,Total 0.2 mg/dL (0.3-1.2); Blood Urea Nitrogen 5 mg/dL (9-23); Calcium 8.6 mg/dL (8.3-10.6); Calcium (Corrected) 8.9 mg/dL (8.5-10.1); Carbon Dioxide 25.8 mMol/L (20.0-31.0); Chloride 103 mMol/L (98-107); Creatinine (Component) 0.5 mg/dL (0.6-1.3); Globulin 2.3 gm/dL (2.3-3.5); Glucose 76 mg/dL (74-106); Osmolality,Calculated 273 (275-295); Sodium 139 mMol/L (136-145); Total Protein 5.9 gm/dL (5.7-8.2); eGFR > 60 See Note
[2025-02-10 19:49] LABS: Chenodeoxycholic Acid* 3.9 umol/L (< OR = 3.9); Cholic Acid* 4.3 umol/L (< OR = 2.8); Deoxycholic Acid* 1.3 umol/L (< OR = 2.3)
[2025-02-11 07:02] LABS: Gamma Glutamyl Transpeptidase* 19 U/L (3-40); Total Bile Acids 9.5 umol/L (< OR = 8.3)
== END | disposition home or self-care (01) ==
LOC: SLDO 14:40
PROVIDERS: Referring Provider Physician Assistant Medical; Visit Provider Physician Assistant Medical
DX: L29.9 Pruritus, unspecified (principal)
CPT/HCPCS: 36415; 80053; 82977; 83789

== ENCOUNTER → 2025-03-05 | Outpatient (CLI) | payer BC, MEDICAID, SELFPAY ==
[2025-03-05 14:55] LABS: Misc Send Out* See Sep Rpt
[2025-03-05 15:47] LABS: Alanine Aminotransferase 11 U/L (10-49); Albumin, Serum 3.9 gm/dL (3.5-5.0); Albumin/Globulin Ratio 1.3 (1.2-2.2); Alkaline Phosphatase 84 U/L (46-116); Anion Gap 10 (7-16); Aspartate Amino Transferase 14 U/L (0-34); BUN/Creatinine Ratio 10 Ratio (12-20); Bilirubin,Total 0.2 mg/dL (0.3-1.2); Blood Urea Nitrogen < 5 mg/dL (9-23); Calcium 9.0 mg/dL (8.3-10.6); Calcium (Corrected) 9.1 mg/dL (8.5-10.1); Carbon Dioxide 24.2 mMol/L (20.0-31.0); Chloride 104 mMol/L (98-107); Creatinine (Component) 0.5 mg/dL (0.6-1.3); Globulin 3.0 gm/dL (2.3-3.5); Glucose 85 mg/dL (74-106); Osmolality,Calculated 271 (275-295); Potassium 3.6 mMol/L (3.4-5.1); Sodium 138 mMol/L (136-145); Total Protein 6.9 gm/dL (5.7-8.2); eGFR > 60 See Note
[2025-03-05 15:48] LABS: INR 1.0 (0.9-1.3); Partial Thromboplastin Time 30.0 Seconds (22.0-36.0); Prothrombin Time 11.4 Seconds (9.0-12.2)
[2025-03-10 22:06] LABS: Chenodeoxycholic Acid* 0.9 umol/L (< OR = 3.9); Cholic Acid* 2.0 umol/L (< OR = 2.8); Deoxycholic Acid* <0.5 umol/L (< OR = 2.3); Sm Antibody <1.0 NEG AI (<1.0 NEGATIVE)
[2025-03-11 07:47] LABS: Gamma Glutamyl Transpeptidase* 9 U/L (3-40); Mitochondrial Ab NEGATIVE (NEGATIVE); Sm/RNP Antibody <1.0 NEG AI (<1.0 NEGATIVE); Total Bile Acids 2.9 umol/L (< OR = 8.3)
== END | disposition home or self-care (01) ==
LOC: COPL 14:26
PROVIDERS: PCP Physician Assistant; Referring Provider Physician Assistant Medical; Visit Provider Physician Assistant Medical
DX: O26.619 Liver and biliary tract disorders in pregnancy, unspecified trimester (principal); Z3A.00 Weeks of gestation of pregnancy not specified
CPT/HCPCS: 36415; 80053; 82977; 83789; 85610; 85730; 86235; 86255

== ENCOUNTER 2025-03-29 08:19 | Observation (INO) | payer BC, MEDICAID, SELFPAY ==
[2025-03-29 08:32] VITALS: BP 127/75; PULSE 92; RESP 18; RESP 98; TEMP 36.8; BMI 47.9
[2025-03-29 08:40] VITALS: BP 127/75; PULSE 92
[2025-03-29 08:55] VITALS: BP 130/80; PULSE 86
[2025-03-29] MEDS: RINGERS LACTATED 1000 ML 1,000 ML 999 ML IV (09:00)
[2025-03-29 09:11] LABS: Collection Type, Urine Clean Catch
[2025-03-29 09:12] LABS: Basophils # (Auto) 0.0 Thou/mm3 (0.0-0.2); Basophils % (Auto) 0 % (0-2.5); Eosinophils # (Auto) 0.1 Thou/mm3 (0.0-0.5); Eosinophils % (Auto) 1 % (0-10); Hematocrit 34.3 % (36.0-46.0); Hemoglobin 11.3 g/dL (12.0-16.0); Immature Granulocytes Auto 0.04 Thou/mm3 (0.00-0.00); Lymphocytes # (Auto) 2.3 Thou/mm3 (1.0-4.8); Lymphocytes % (Auto) 23 % (10-50); Mean Corpuscular HGB Conc 32.9 g/dl (31.0-37.0); Mean Corpuscular Hemoglobin 29.5 pg (25.0-35.0); Mean Corpuscular Volume 90 fL (80-100); Monocytes # (Auto) 0.4 Thou/mm3 (0.0-0.8); Monocytes % (Auto) 4 % (0-12); Neutrophils # (Auto) 7.0 Thou/mm3 (1.8-7.7); Neutrophils % (Auto) 72 % (37-80); Nucleated Red Blood Cell # 0.00 Thou/mm3 (0.00-0.00); Nucleated Red Blood Cell % 0 /100 WBC (0); Platelet Count 252 Thou/mm3 (140-440); RDW Standard Deviation 49.2 fL (36.4-46.3); Red Blood Count 3.83 Miln/mm3 (4.00-5.20); White Blood Count 9.8 Thou/mm3 (3.6-11.0)
[2025-03-29 09:15] VITALS: BP 122/70; PULSE 86
[2025-03-29 09:34] VITALS: BP 129/76; PULSE 77
[2025-03-29 09:41] LABS: Bacteria,Urine Rare; Bilirubin,Urine Negative (Negative); Blood,Urine Negative (Negative); Clarity,Urine Clear (Clear/Hazy); Color,Urine Yellow (Lt Yel-Yel); Glucose, Urine Negative (Negative); Ketones,Urine Negative (Negative); Leukocyte Esterase,Urine Negative (Negative); Nitrite,Urine Negative (Negative); PH,Urine 7.0 (5.0-7.0); Protein,Urine Trace (Neg - Trace); RBC,Urine 1 /hpf (0-3); Specific Gravity,Urine 1.024 (1.001-1.035); Squamous Epithelial Cell,Urine 8 /hpf (0-5); Urobilinogen,Urine Negative mg/dL (0.0-1.0); WBC,Urine 1 /hpf (0-5)
[2025-03-29 09:55] VITALS: BP 129/74; PULSE 82
== END 2025-03-29 10:05 | disposition home or self-care (01) ==
PROVIDERS: Admitting Provider Obstetrics & Gynecology; PCP Family Medicine; Visit Provider Obstetrics & Gynecology
DX: O21.2 Late vomiting of pregnancy (principal); O26.892 Other specified pregnancy related conditions, second trimester; R42 Dizziness and giddiness; Z3A.37 37 weeks gestation of pregnancy
CPT/HCPCS: 36415; 59025; 59899; 81001; 85025; J7120

== ENCOUNTER → 2025-04-02 | Outpatient (CLI) | payer BC, MEDICAID, SELFPAY ==
[2025-04-02 16:38] LABS: Basophils # (Auto) 0.0 Thou/mm3 (0.0-0.2); Basophils % (Auto) 0 % (0-2.5); Eosinophils # (Auto) 0.1 Thou/mm3 (0.0-0.5); Eosinophils % (Auto) 1 % (0-10); Hematocrit 34.9 % (36.0-46.0); Hemoglobin 11.3 g/dL (12.0-16.0); Immature Granulocytes Auto 0.05 Thou/mm3 (0.00-0.00); Lymphocytes # (Auto) 2.5 Thou/mm3 (1.0-4.8); Lymphocytes % (Auto) 27 % (10-50); Mean Corpuscular HGB Conc 32.4 g/dl (31.0-37.0); Mean Corpuscular Hemoglobin 29.7 pg (25.0-35.0); Mean Corpuscular Volume 92 fL (80-100); Monocytes # (Auto) 0.3 Thou/mm3 (0.0-0.8); Monocytes % (Auto) 4 % (0-12); Neutrophils # (Auto) 6.4 Thou/mm3 (1.8-7.7); Neutrophils % (Auto) 68 % (37-80); Nucleated Red Blood Cell # 0.00 Thou/mm3 (0.00-0.00); Nucleated Red Blood Cell % 0 /100 WBC (0); Platelet Count 270 Thou/mm3 (140-440); RDW Standard Deviation 51.0 fL (36.4-46.3); Red Blood Count 3.80 Miln/mm3 (4.00-5.20); White Blood Count 9.4 Thou/mm3 (3.6-11.0)
[2025-04-02 17:06] LABS: Alanine Aminotransferase 10 U/L (10-49); Albumin, Serum 3.4 gm/dL (3.5-5.0); Albumin/Globulin Ratio 1.6 (1.2-2.2); Alkaline Phosphatase 84 U/L (46-116); Anion Gap 12 (7-16); Aspartate Amino Transferase 11 U/L (0-34); BUN/Creatinine Ratio 12 Ratio (12-20); Bilirubin,Total 0.2 mg/dL (0.3-1.2); Blood Urea Nitrogen 6 mg/dL (9-23); Calcium 8.3 mg/dL (8.3-10.6); Calcium (Corrected) 8.8 mg/dL (8.5-10.1); Carbon Dioxide 23.1 mMol/L (20.0-31.0); Chloride 106 mMol/L (98-107); Creatinine (Component) 0.5 mg/dL (0.6-1.3); Free T4 (Free Thyroxine) 0.97 ng/dL (0.89-1.76); Globulin 2.1 gm/dL (2.3-3.5); Glucose 126 mg/dL (74-106); Glucose,1 Hour PP 50gm Dose 126 mg/dL (80-140); Osmolality,Calculated 280 (275-295); Potassium 3.8 mMol/L (3.4-5.1); Sodium 141 mMol/L (136-145); Thyroid Stimulating Hormone 1.32 uIU/mL (0.55-4.78); Total Protein 5.5 gm/dL (5.7-8.2); eGFR > 60 See Note
[2025-04-09 13:52] LABS: Chenodeoxycholic Acid* 2.4 umol/L (< OR = 3.9); Cholic Acid* 3.4 umol/L (< OR = 2.8); Deoxycholic Acid* 0.9 umol/L (< OR = 2.3)
[2025-04-10 06:52] LABS: Total Bile Acids 6.7 umol/L (< OR = 8.3)
== END | disposition home or self-care (01) ==
LOC: SLDO 14:44
PROVIDERS: Referring Provider Physician Assistant Medical; Visit Provider Physician Assistant Medical
DX: O26.619 Liver and biliary tract disorders in pregnancy, unspecified trimester (principal); Z3A.00 Weeks of gestation of pregnancy not specified; R42 Dizziness and giddiness
CPT/HCPCS: 36415; 80053; 82950; 83789; 84439; 84443; 85025; 87086

== ENCOUNTER → 2025-04-16 | Outpatient (CLI) | payer BC, MEDICAID, SELFPAY ==
[2025-04-16 17:15] LABS: Basophils # (Auto) 0.0 Thou/mm3 (0.0-0.2); Basophils % (Auto) 0 % (0-2.5); Eosinophils # (Auto) 0.1 Thou/mm3 (0.0-0.5); Eosinophils % (Auto) 1 % (0-10); Hematocrit 35.1 % (36.0-46.0); Hemoglobin 11.3 g/dL (12.0-16.0); Immature Granulocytes Auto 0.04 Thou/mm3 (0.00-0.00); Lymphocytes # (Auto) 3.0 Thou/mm3 (1.0-4.8); Lymphocytes % (Auto) 29 % (10-50); Mean Corpuscular HGB Conc 32.2 g/dl (31.0-37.0); Mean Corpuscular Hemoglobin 28.8 pg (25.0-35.0); Mean Corpuscular Volume 89 fL (80-100); Monocytes # (Auto) 0.4 Thou/mm3 (0.0-0.8); Monocytes % (Auto) 4 % (0-12); Neutrophils # (Auto) 6.6 Thou/mm3 (1.8-7.7); Neutrophils % (Auto) 65 % (37-80); Nucleated Red Blood Cell # 0.00 Thou/mm3 (0.00-0.00); Nucleated Red Blood Cell % 0 /100 WBC (0); Platelet Count 260 Thou/mm3 (140-440); RDW Standard Deviation 48.7 fL (36.4-46.3); Red Blood Count 3.93 Miln/mm3 (4.00-5.20); White Blood Count 10.2 Thou/mm3 (3.6-11.0)
[2025-04-16 17:43] LABS: Alanine Aminotransferase 13 U/L (10-49); Albumin, Serum 3.5 gm/dL (3.5-5.0); Albumin/Globulin Ratio 1.6 (1.2-2.2); Alkaline Phosphatase 104 U/L (46-116); Anion Gap 10 (7-16); Aspartate Amino Transferase 12 U/L (0-34); BUN/Creatinine Ratio 12 Ratio (12-20); Bilirubin,Total < 0.2 mg/dL (0.3-1.2); Blood Urea Nitrogen 6 mg/dL (9-23); Calcium 9.0 mg/dL (8.3-10.6); Calcium (Corrected) 9.4 mg/dL (8.5-10.1); Carbon Dioxide 24.6 mMol/L (20.0-31.0); Chloride 106 mMol/L (98-107); Creatinine (Component) 0.5 mg/dL (0.6-1.3); Globulin 2.2 gm/dL (2.3-3.5); Glucose 100 mg/dL (74-106); Osmolality,Calculated 278 (275-295); Potassium 3.9 mMol/L (3.4-5.1); Sodium 141 mMol/L (136-145); Total Protein 5.7 gm/dL (5.7-8.2); eGFR > 60 See Note
[2025-04-16 17:48] LABS: Syphilis Nonreactive (Nonreactive)
[2025-04-20 22:04] LABS: Chenodeoxycholic Acid* 1.8 umol/L (< OR = 3.9); Cholic Acid* 3.1 umol/L (< OR = 2.8); Deoxycholic Acid* 0.7 umol/L (< OR = 2.3)
[2025-04-23 07:04] LABS: Gamma Glutamyl Transpeptidase* 11 U/L (3-40); Total Bile Acids 5.7 umol/L (< OR = 8.3)
== END | disposition home or self-care (01) ==
LOC: SLDO 15:12
PROVIDERS: Referring Provider Physician Assistant Medical; Visit Provider Physician Assistant Medical
DX: O26.619 Liver and biliary tract disorders in pregnancy, unspecified trimester (principal); Z3A.00 Weeks of gestation of pregnancy not specified
CPT/HCPCS: 36415; 80053; 82977; 83789; 85025; 86780

== ENCOUNTER → 2025-04-30 | Outpatient (CLI) | payer BC, MEDICAID, SELFPAY ==
[2025-04-30 17:07] LABS: Glucose,1 Hour PP 50gm Dose 77 mg/dL (80-140)
[2025-04-30 17:13] LABS: Alanine Aminotransferase 10 U/L (10-49); Albumin, Serum 3.1 gm/dL (3.5-5.0); Albumin/Globulin Ratio 1.4 (1.2-2.2); Alkaline Phosphatase 112 U/L (46-116); Anion Gap 12 (7-16); Aspartate Amino Transferase 11 U/L (0-34); BUN/Creatinine Ratio 12 Ratio (12-20); Bilirubin,Total 0.2 mg/dL (0.3-1.2); Blood Urea Nitrogen 6 mg/dL (9-23); Calcium 8.3 mg/dL (8.3-10.6); Calcium (Corrected) 9.0 mg/dL (8.5-10.1); Carbon Dioxide 25.0 mMol/L (20.0-31.0); Chloride 104 mMol/L (98-107); Creatinine (Component) 0.5 mg/dL (0.6-1.3); Globulin 2.2 gm/dL (2.3-3.5); Glucose 75 mg/dL (74-106); Osmolality,Calculated 277 (275-295); Potassium 3.8 mMol/L (3.4-5.1); Sodium 141 mMol/L (136-145); Total Protein 5.3 gm/dL (5.7-8.2); eGFR > 60 See Note
[2025-05-06 13:48] LABS: Chenodeoxycholic Acid* 2.2 umol/L (< OR = 3.9); Cholic Acid* 3.0 umol/L (< OR = 2.8); Deoxycholic Acid* 0.9 umol/L (< OR = 2.3)
[2025-05-07 06:36] LABS: Gamma Glutamyl Transpeptidase* 10 U/L (3-40); Total Bile Acids 6.1 umol/L (< OR = 8.3)
== END | disposition home or self-care (01) ==
LOC: SLDO 14:47
PROVIDERS: Referring Provider Physician Assistant Medical; Visit Provider Physician Assistant Medical
DX: Z34.82 Encounter for supervision of other normal pregnancy, second trimester (principal)
CPT/HCPCS: 36415; 80053; 82950; 82977; 83789

== ENCOUNTER → 2025-05-14 | Outpatient (CLI) | payer BC, MEDICAID, SELFPAY ==
[2025-05-14 17:12] LABS: Alanine Aminotransferase 12 U/L (10-49); Albumin, Serum 3.4 gm/dL (3.5-5.0); Albumin/Globulin Ratio 1.5 (1.2-2.2); Alkaline Phosphatase 139 U/L (46-116); Anion Gap 9 (7-16); Aspartate Amino Transferase 12 U/L (0-34); BUN/Creatinine Ratio 15 Ratio (12-20); Bilirubin,Total < 0.2 mg/dL (0.3-1.2); Blood Urea Nitrogen 6 mg/dL (9-23); Calcium 8.7 mg/dL (8.3-10.6); Calcium (Corrected) 9.2 mg/dL (8.5-10.1); Carbon Dioxide 23.9 mMol/L (20.0-31.0); Chloride 108 mMol/L (98-107); Creatinine (Component) 0.4 mg/dL (0.6-1.3); Globulin 2.3 gm/dL (2.3-3.5); Glucose 81 mg/dL (74-106); Osmolality,Calculated 277 (275-295); Potassium 4.1 mMol/L (3.4-5.1); Sodium 141 mMol/L (136-145); Total Protein 5.7 gm/dL (5.7-8.2); eGFR > 60 See Note
[2025-05-21 17:53] LABS: Chenodeoxycholic Acid* 1.8 umol/L (< OR = 3.9); Cholic Acid* 5.3 umol/L (< OR = 2.8); Deoxycholic Acid* <0.5 umol/L (< OR = 2.3)
[2025-05-22 07:09] LABS: Gamma Glutamyl Transpeptidase* 9 U/L (3-40); Total Bile Acids 7.0 umol/L (< OR = 8.3)
== END | disposition home or self-care (01) ==
LOC: SLDO 14:54
PROVIDERS: Referring Provider Physician Assistant Medical; Visit Provider Physician Assistant Medical
DX: O26.619 Liver and biliary tract disorders in pregnancy, unspecified trimester (principal); Z3A.00 Weeks of gestation of pregnancy not specified
CPT/HCPCS: 36415; 80053; 82977; 83789

== ENCOUNTER → 2025-05-28 | Outpatient (CLI) | payer BC, MEDICAID, SELFPAY ==
[2025-05-28 17:12] LABS: Alanine Aminotransferase 7 U/L (10-49); Albumin, Serum 3.2 gm/dL (3.5-5.0); Albumin/Globulin Ratio 1.4 (1.2-2.2); Alkaline Phosphatase 151 U/L (46-116); Anion Gap 11 (7-16); Aspartate Amino Transferase < 8 U/L (0-34); BUN/Creatinine Ratio 8 Ratio (12-20); Bilirubin,Total 0.2 mg/dL (0.3-1.2); Blood Urea Nitrogen < 5 mg/dL (9-23); Calcium 8.4 mg/dL (8.3-10.6); Calcium (Corrected) 9.0 mg/dL (8.5-10.1); Carbon Dioxide 26.4 mMol/L (20.0-31.0); Chloride 104 mMol/L (98-107); Creatinine (Component) 0.6 mg/dL (0.6-1.3); Globulin 2.3 gm/dL (2.3-3.5); Glucose 82 mg/dL (74-106); Osmolality,Calculated 277 (275-295); Potassium 3.8 mMol/L (3.4-5.1); Sodium 141 mMol/L (136-145); Total Protein 5.5 gm/dL (5.7-8.2); eGFR > 60 See Note
[2025-06-02 23:34] LABS: Chenodeoxycholic Acid* 2.7 umol/L (< OR = 3.9); Cholic Acid* 5.3 umol/L (< OR = 2.8); Deoxycholic Acid* 0.8 umol/L (< OR = 2.3)
[2025-06-03 06:33] LABS: Total Bile Acids 8.8 umol/L (< OR = 8.3)
== END | disposition home or self-care (01) ==
LOC: SLDO 14:40
PROVIDERS: Referring Provider Physician Assistant Medical; Visit Provider Physician Assistant Medical
DX: O26.619 Liver and biliary tract disorders in pregnancy, unspecified trimester (principal)
CPT/HCPCS: 36415; 80053; 83789

== ENCOUNTER → 2025-05-31 | Outpatient (CLI) | payer BC, MEDICAID, SELFPAY ==
[2025-06-01 15:31] LABS: BVAG Candida Negative (Negative); Bacterial Vaginosis Markers Negative (Negative); Candida glabrata Negative (Negative); Candida krusei PCR Negative (Negative); Trichomonas Negative (Negative)
== END | disposition home or self-care (01) ==
LOC: SLDO 14:55
PROVIDERS: Referring Provider Specialist; Visit Provider Specialist
DX: Z34.83 Encounter for supervision of other normal pregnancy, third trimester (principal)
CPT/HCPCS: 81514

== ENCOUNTER 2025-06-09 08:55 | Inpatient (IN) | payer BC, MEDICAID, SELFPAY ==
--- NOTE | 2025-06-03 10:05 | ESHP_ITS ---
RE: ARSENIO ARIAS : 1995 DATE OF ADMISSION: 06/09/2025 This is a 29-year-old 4 para 3-0-0-3 with due date of 06/28/2025 with intrauterine at 37 weeks and 2 days on 06/09/2025, who presents for induction of labor for cholestasis of . The patient's bile acid level has been less than 10 on ursodiol at 300 mg every 8 hours. She reports normal movement. She denies any leaking or bleeding. She reports occasional contractions. Her ultrasound on 05/14/2025 showed growth at the 70th percentile. MEDICATIONS: 1. Ursodiol 300 mg 1 p.o. q.8 hours. 2. Omeprazole 20 mg 1 p.o. daily p.r.n. heartburn. 3. Ferrous sulfate 325 mg 1 p.o. daily. 4. vitamin 1 p.o. daily. 5. Aspirin 81 mg 1 p.o. daily. SOCIAL HISTORY: She denies any alcohol or drug use or smoking. PAST MEDICAL HISTORY: Migraine headaches, gastroesophageal reflux disease, and cholestasis of . FAMILY HISTORY: Diabetes, hypertension, and stroke. OBSTETRIC HISTORY: 11/2019, 37 week normal vaginal delivery, 7 pound 7 ounce female, complicated by cholestasis; 08/2021, 38 week normal vaginal delivery, 7 pound 1 ounce male, no complications; 11/2022, 40 week normal vaginal delivery, 6 pound 4 ounce male, no complications. PAST SURGICAL HISTORY: Denies. REVIEW OF SYSTEMS: She denies any chest pain, palpitations, cough, fever, shortness of breath or lower extremity pain. PHYSICAL EXAMINATION: VITAL SIGNS: Blood pressure 137/77, heart rate 88, respiration 18, and temperature is 98.6. HEENT: Oropharynx and sclerae are clear. LUNGS: Clear to auscultation bilaterally. HEART: Regular rate and rhythm. ABDOMEN: Gravid consistent with estimated weight is 7 pounds. PELVIC: See RN notes. EXTREMITIES: Nontender. SKIN: No gross rashes or lesions. NEUROLOGIC: No focal deficit. ASSESSMENT AND PLAN: Intrauterine at 37 weeks and 2 days on 06/09/2025, cholestasis of , induction of labor. Anticipates spontaneous vaginal delivery. Informed consent was obtained. The patient was made aware of the risks, complications, alternatives, and benefits of operative vaginal delivery and delivery and agrees with these modes of delivery if indicated. DT: :: TT: 18:14:00 Ref: [id number] - TID: [id number] MTDD
--- NOTE | 2025-06-07 08:08 | PC.NURSE ---
LATE ENTRY: PT HAD CALLED EARLIER, ASKED FOR BED AVAILABILITY FOR IOL, INFORMED OF NO BED AVAILABLE AT THIS TIME, EDUCATED ON KICK COUNT AND LABOR PRECAUTIONS, EDUCATED ON WILL CALL PT ONCE BED BECOMES AVAILABLE, PT VERBALIZED UNDERSTANDING
--- NOTE | 2025-06-08 07:34 | PC.NURSE ---
PT CALLED ASKING FOR BED AVAILABILITY FOR IOL, INFORMED OF NO BEDS AVAILABLE AT THIS TIME, WILL CALL ONCE BED BECOMES AVAILABLE, PT STATES HAD NST YESTERDAY AT OFFICE, EDUCATED ON KICK COUNT AND LABOR PRECAUTIONS, PT VERBALIZED UNDERSTANDING
[2025-06-09] VITALS (33 sets, daily range): BP systolic 109–149; BP diastolic 57–85; PULSE 78–121; RESP 17–19; TEMP 36.6–36.8; O2SAT 80–100; BMI 48.5; BMI 48.6
[2025-06-09] MEDS: RINGERS LACTATED 1000 ML 1,000 ML 100 ML IV ×2 (10:14→17:03)
--- NOTE | 2025-06-09 11:35 | PD.LDHP ---
Documentation for date of: 06/09/25 OB Labor/Induct. HPI History of Present Illness : 4 Para: 3 Term pregnancies: 3 pregnancies: 0 Living children: 3 History of Abortions: Spontaneous and Elective: 0 History of sections: No History of : No NICKY: 06/28/25 Comments: RE: ARIASDELORESARSENIO : 1995 DATE OF ADMISSION: 06/09/2025 This is a 29-year-old 4 para 3-0-0-3 with due date of 06/28/2025 with intrauterine at 37 weeks and 2 days on 06/09/2025, who presents for induction of labor for cholestasis of . The patient's bile acid level has been less than 10 on ursodiol at 300 mg every 8 hours. She reports normal movement. She denies any leaking or bleeding. She reports occasional contractions. Her ultrasound on 05/14/2025 showed growth at the 70th percentile. MEDICATIONS: 1. Ursodiol 300 mg 1 p.o. q.8 hours. 2. Omeprazole 20 mg 1 p.o. daily p.r.n. heartburn. 3. Ferrous sulfate 325 mg 1 p.o. daily. 4. vitamin 1 p.o. daily. 5. Aspirin 81 mg 1 p.o. daily. SOCIAL HISTORY: She denies any alcohol or drug use or smoking. PAST MEDICAL HISTORY: Migraine headaches, gastroesophageal reflux disease, and cholestasis of . FAMILY HISTORY: Diabetes, hypertension, and stroke. OBSTETRIC HISTORY: 11/2019, 37 week normal vaginal delivery, 7 pound 7 ounce female, complicated by cholestasis; 08/2021, 38 week normal vaginal delivery, 7 pound 1 ounce male, no complications; 11/2022, 40 week normal vaginal delivery, 6 pound 4 ounce male, no complications. PAST SURGICAL HISTORY: Denies. REVIEW OF SYSTEMS: She denies any chest pain, palpitations, cough, fever, shortness of breath or lower extremity pain. PHYSICAL EXAMINATION: VITAL SIGNS: Blood pressure 137/77, heart rate 88, respiration 18, and temperature is 98.6. HEENT: Oropharynx and sclerae are clear. LUNGS: Clear to auscultation bilaterally. HEART: Regular rate and rhythm. ABDOMEN: Gravid consistent with estimated weight is 7 pounds. PELVIC: See RN notes. EXTREMITIES: Nontender. SKIN: No gross rashes or lesions. NEUROLOGIC: No focal deficit. ASSESSMENT AND PLAN: Intrauterine at 37 weeks and 2 days on 06/09/2025, cholestasis of , induction of labor. Anticipates spontaneous vaginal delivery. Informed consent was obtained. The patient was made aware of the risks, complications, alternatives, and benefits of operative vaginal delivery and delivery and agrees with these modes of delivery if indicated. Labs Labs: Positive: Rubella Titre, Negative: RPR, Hepatitis B, HIV, Chlamydia, Gonorrhea and Group Beta Strep and Unknown: Herpes Type 1, Herpes Type 2 and Covid-19 Past Medical History Surgical History SURGICAL: Negative Section Meds Home Medications and Allergies Home Medications ?Medication ?Instructions ?Recorded ?Confirmed ?Type vit no.95-ferrous 1 tab PO QDAY 05/19/19 06/09/25 History fumarate 28 mg-folic acid 800 mcg tablet () aspirin 81 mg capsule 81 mg PO QDAY 03/29/25 06/09/25 History ursodiol 300 mg capsule mg 06/09/25 History Allergies Allergy/AdvReac Type Severity Reaction Status Date / Time No Known Allergies Allergy Verified 06/09/25 10:54 OB Exam Physical Exam Vital signs: Temp Pulse Resp BP O2 Del Method 98.3 F 83 18 114/73 Room Air 06/09/25 09:00 06/09/25 10:33 06/09/25 09:00 06/09/25 10:33 06/09/25 09:00
[2025-06-09 14:53] LABS: Basophils # (Auto) 0.0 Thou/mm3 (0.0-0.2); Basophils % (Auto) 0 % (0-2.5); Eosinophils # (Auto) 0.1 Thou/mm3 (0.0-0.5); Eosinophils % (Auto) 1 % (0-10); Hematocrit 36.9 % (36.0-46.0); Hemoglobin 11.8 g/dL (12.0-16.0); Immature Granulocytes Auto 0.05 Thou/mm3 (0.00-0.00); Lymphocytes # (Auto) 2.7 Thou/mm3 (1.0-4.8); Lymphocytes % (Auto) 28 % (10-50); Mean Corpuscular HGB Conc 32.0 g/dl (31.0-37.0); Mean Corpuscular Hemoglobin 28.2 pg (25.0-35.0); Mean Corpuscular Volume 88 fL (80-100); Monocytes # (Auto) 0.5 Thou/mm3 (0.0-0.8); Monocytes % (Auto) 5 % (0-12); Neutrophils # (Auto) 6.3 Thou/mm3 (1.8-7.7); Neutrophils % (Auto) 66 % (37-80); Nucleated Red Blood Cell # 0.00 Thou/mm3 (0.00-0.00); Nucleated Red Blood Cell % 0 /100 WBC (0); Platelet Count 223 Thou/mm3 (140-440); RDW Standard Deviation 46.1 fL (36.4-46.3); Red Blood Count 4.19 Miln/mm3 (4.00-5.20); White Blood Count 9.6 Thou/mm3 (3.6-11.0)
[2025-06-09 15:28] LABS: Syphilis Nonreactive (Nonreactive)
--- NOTE | 2025-06-09 16:54 | PD.LDPN ---
Documentation for date of: 06/09/25 OB Labor Progress Note Pain Control Comments: None needed Pelvic Exam Dilation (cm): 2 Effacement (%): 50 station: -3 Amniotic membrane status: Intact Comments: Per RN exam Contractions Monitor mode: External Contraction frequency: 3-5 Contraction intensity: Mild Status status: Category l Assessment and Plan Comments: Induction with Cervidil
[2025-06-09] MEDS: RINGERS LACTATED 500 ML 500 ML 999 ML IV (22:17)
[2025-06-09] MEDS: OXYTOCIN in NS 20 units 20 UNIT/1,000 ML BAG 125 UNIT IV (23:19)
--- NOTE | 2025-06-09 23:27 | PD.LDDS ---
DS: Providers Provider Date of admission: 06/09/25 08:55 Primary care physician: Physician No Primary/Family Admitting Provider: Bean Pearson MD Attending Provider on Admission: Bean Pearson MD Attending Provider on DC: Bean Pearson MD Discharging Provider: Bean Pearson MD DS: Diagnosis Discharge Diagnosis (1) Normal spontaneous vaginal delivery: Status: Acute (2) care following vaginal delivery: Status: Acute (3) Cholestasis during : Status: Acute Problem List Completed Was Problem List Reviewed/Reconciled?: Yes Summary/Hosp Course Peripartum Data Delivery Method: Normal Vaginal Delivery Episiotomy Description: None Time Spent with Patient Time attestation: Total time spent providing and/or coordinating discharge services: Exam Vital Signs Temp Pulse Resp BP Pulse Ox O2 Del Method 97.9 F 95 19 113/58 L 95 Room Air 06/09/25 19:04 06/09/25 23:20 06/09/25 19:04 06/09/25 23:20 06/09/25 23:15 06/09/25 14:00 Discharge Plan Plan Patient Disposition: HOME (Self Care) Patient condition on transfer: Stable Prescriptions/Referrals Prescriptions/Med Rec: New ibuprofen 600 mg tablet 600 mg PO Q6H PRN (Reason: pain) Qty: 30 0RF Continued PNV no.95-ferrous fumarate-FA [] 28 mg iron- 800 mcg Tablet 1 tab PO QDAY ursodiol 300 mg capsule Discontinued aspirin 81 mg capsule 81 mg PO QDAY Referrals: No Primary/Family,Physician [Primary Care Provider] Patient/Caregiver Discharge Instructions Discharge Activity: activity as tolerated Other Discharge Activity Instructions:: Follow up office 6 weeks Print Language: Singaporean Stand Alone Forms: Nyal Award Info., Patient Portal Info Letter Discharge Order Discharge Orders: Discharge (Routine); Ordered 06/11/25 Ordered By: Bean Pearson Planned Discharge Date 06/11/25 (3) Cholestasis during Qualifiers: Trimester: third trimester Qualified Code(s): O26.643 - Intrahepatic cholestasis of , third trimester
[2025-06-09] MEDS: IBUPROFEN TAB 400 MG TABLET 800 MG PO (23:37)
[2025-06-09] MEDS: BENZO/LANO/ALOE (Dermoplast) 60 GM CAN 1 SPRAY TOP (23:37)
[2025-06-10] VITALS (10 sets, daily range): BP systolic 108–131; BP diastolic 59–84; PULSE 74–92; RESP 16–18; TEMP 36.4–36.7; O2SAT 97–98
[2025-06-10 06:17] LABS: Basophils # (Auto) 0.0 Thou/mm3 (0.0-0.2); Basophils % (Auto) 0 % (0-2.5); Eosinophils # (Auto) 0.0 Thou/mm3 (0.0-0.5); Eosinophils % (Auto) 0 % (0-10); Hematocrit 35.0 % (36.0-46.0); Hemoglobin 11.7 g/dL (12.0-16.0); Immature Granulocytes Auto 0.05 Thou/mm3 (0.00-0.00); Lymphocytes # (Auto) 3.0 Thou/mm3 (1.0-4.8); Lymphocytes % (Auto) 22 % (10-50); Mean Corpuscular HGB Conc 33.4 g/dl (31.0-37.0); Mean Corpuscular Hemoglobin 28.5 pg (25.0-35.0); Mean Corpuscular Volume 85 fL (80-100); Monocytes # (Auto) 0.7 Thou/mm3 (0.0-0.8); Monocytes % (Auto) 5 % (0-12); Neutrophils # (Auto) 10.1 Thou/mm3 (1.8-7.7); Neutrophils % (Auto) 73 % (37-80); Nucleated Red Blood Cell # 0.00 Thou/mm3 (0.00-0.00); Nucleated Red Blood Cell % 0 /100 WBC (0); Platelet Count 203 Thou/mm3 (140-440); RDW Standard Deviation 43.5 fL (36.4-46.3); Red Blood Count 4.11 Miln/mm3 (4.00-5.20); White Blood Count 13.9 Thou/mm3 (3.6-11.0)
--- NOTE | 2025-06-10 06:59 | PD.LDPPPRG ---
Subjective Subjective Interval history: Patient denies any primary complaint. She has less itching.. She is voiding and ambulating and tolerating a regular diet. She denies any excessive vaginal bleeding. She denies any dizziness or lightheadedness. She denies any chest pain palpitations shortness of breath or lower extremity pain. Exam Vital Signs Temp Pulse Resp BP Pulse Ox O2 Del Method 97.7 F 77 16 108/69 98 Room Air 06/10/25 04:00 06/10/25 04:00 06/10/25 04:00 06/10/25 04:00 06/10/25 04:00 06/10/25 04:00 Routine Respiratory Exam Comments: Clear to auscultation bilaterally Routine Cardiovascular Exam Comments: Regular rate and rhythm Routine Abdominal Exam Comments: Fundus is firm nontender Routine Extremities Exam Comments: Nontender Objective Labs 06/10/25 05:44 Labs: Laboratory Results - last 24 hr 06/09/25 06/10/25 09:30 05:44 WBC 9.6 13.9 H D RBC 4.19 4.11 Hgb 11.8 L 11.7 L Hct 36.9 35.0 L MCV 88 85 MCH 28.2 28.5 MCHC 32.0 33.4 RDW Std Deviation 46.1 43.5 Plt Count 223 203 Neut % (Auto) 66 73 Lymph % (Auto) 28 22 [place] % (Auto) 5 5 Eos % (Auto) 1 0 Baso % (Auto) 0 0 Neut # (Auto) 6.3 10.1 H Lymph # (Auto) 2.7 3.0 [place] # (Auto) 0.5 0.7 Eos # (Auto) 0.1 0.0 Baso # (Auto) 0.0 0.0 Immature Gran # (Auto) 0.05 H 0.05 H Absolute Nucleated RBC 0.00 0.00 Immature Gran % 1 H 0 Nucleated RBC % 0 0 Syphilis Serology Nonreactive Blood Type A Positive Antibody Screen NEGATIVE Blood Bank Wristband ID Yes Impressions Impression: day #1 status post spontaneous vaginal delivery Cholestasis of with less itching since delivery continue ursodiol as needed Discharge home when baby is cleared. Assessment & Plan Problem List (1) Normal spontaneous vaginal delivery: Status: Acute (2) care following vaginal delivery: Status: Acute (3) Cholestasis during : Status: Acute Time Spent With Patient Time: Total time spent is greater than 50% in coordination of care (as documented) at patient's floor/unit and/or counseling patient:
--- NOTE | 2025-06-10 07:08 | OBDSUM_ITS ---
Data ([place]) Data Hx Section: No : 4 Term: 3 : 0 Livin Abortions: Spontaneous & Theraputic: 0 Delivery Data (De Guzman) Labor Data Initiation of labor: Induction Induction/Augmentation Agent: Cervidil ROM date: 06/09/25 ROM time: 23:12 Amniotic membrane rupture type: Artificial Amniotic fluid description: Clear Delivery Data EDC: 06/28/25 EDC calculated by:: LMP/early US confirmation Onset of labor date: 06/09/25 Onset of labor time: 22:12 Complete dilation date: 06/09/25 Complete dilation time: 23:10 [place] delivery date: 06/09/25 [place] delivery time: 23:14 Gestational age (weeks): 37 Gestational age (days): 2 Placenta delivery date: 06/09/25 Placenta delivery time: 23:19 Stage 1 total time: Labor - Stage 1 Duration 58 minutes Delivered by: geiling Delivery nurse: chino villarreal rn. [place] nurse: fer mccormack rn. Shower Enclosure Installer at delivery: No Support person(s) at delivery: fob. Other staff at delivery: Clarke Javier RN. Delivery Method Delivery method: Normal Vaginal Delivery Presentation: Vertex position: OA Anesthesia Type Anesthesia Type: None Placenta Placenta delivery description: Spontaneous Cord blood sent to lab: Yes cord blood collection: Cord Blood Type Episiotomy Episiotomy description: None EBL Estimated blood loss (ml): 150 Umbilical Cord cord description: 3 Vessels and Nuchal Cord Complications Complications: None Data ([place]man) Data 's gender: Female Identification band number: [id number] weight (gms): 6 lb 10.175 oz Weight (pounds): 6 lbs and 10.2 ozs 1 minute: 8 5 minutes: 9
[2025-06-10] MEDS: DIPHTH,PERTUSS(ACELL),TET VAC 0.5 ML SYR- ADULT IMi (11:31)
[2025-06-10] MEDS: IBUPROFEN TAB 400 MG TABLET 800 MG PO (23:01)
[2025-06-11 04:44] VITALS: BP 105/70; PULSE 74; RESP 20; TEMP 36.5; O2SAT 96
--- NOTE | 2025-06-11 07:34 | PD.LDPPPRG ---
Subjective Subjective Interval history: Patient denies any primary complaint Exam Vital Signs Temp Pulse Resp BP Pulse Ox O2 Del Method 97.7 F 74 20 105/70 96 Room Air 06/11/25 04:44 06/11/25 04:44 06/11/25 04:44 06/11/25 04:44 06/11/25 04:44 06/11/25 04:44 Routine Respiratory Exam Comments: Clear to auscultation bilaterally Routine Cardiovascular Exam Comments: Regular rate and rhythm Routine Abdominal Exam Comments: Fundus is firm, nontender. Routine Extremities Exam Comments: Nontender Objective Labs 06/10/25 05:44 Impressions Impression: day #1 status post spontaneous vaginal delivery Cholestasis with itching resolved Discharge home Discharge instructions given Follow-up in the office in 6 weeks Assessment & Plan Problem List (1) Normal spontaneous vaginal delivery: Status: Acute (2) care following vaginal delivery: Status: Acute (3) Cholestasis during : Status: Acute Time Spent With Patient Time: Total time spent is greater than 50% in coordination of care (as documented) at patient's floor/unit and/or counseling patient:
[2025-06-11 08:10] VITALS: BP 128/85; PULSE 84; RESP 18; TEMP 36.6; O2SAT 98
== END 2025-06-11 11:10 | disposition home or self-care (01) | DRG 807 ==
LOC: S4SX 23:24 → S4NX 06-10 01:33
PROVIDERS: Admitting Provider Specialist; Visit Provider Specialist
DX: O26.643 Intrahepatic cholestasis of pregnancy, third trimester (principal); Z37.0 Single live birth; O69.81X0 Labor and delivery complicated by cord around neck, without compression, not applicable or unspecified; K76.89 Other specified diseases of liver; Z3A.37 37 weeks gestation of pregnancy
CPT/HCPCS: 36415; 59409; 85025; 86780; 86850; 86900; 86901; 90715; 94762; J2590; J2795; J3010; J7120; A9270

== ENCOUNTER → 2025-07-30 | Outpatient (CLI) | payer BC, MEDICAID, SELFPAY ==
[2025-07-30 15:56] LABS: Alanine Aminotransferase 17 U/L (10-49); Albumin, Serum 4.4 gm/dL (3.5-5.0); Albumin/Globulin Ratio 1.6 (1.2-2.2); Alkaline Phosphatase 95 U/L (46-116); Anion Gap 9 (7-16); Aspartate Amino Transferase 17 U/L (0-34); BUN/Creatinine Ratio 21 Ratio (12-20); Bilirubin,Total 0.2 mg/dL (0.3-1.2); Blood Urea Nitrogen 15 mg/dL (9-23); Calcium 9.4 mg/dL (8.3-10.6); Calcium (Corrected) 9.4 mg/dL (8.5-10.1); Carbon Dioxide 29.9 mMol/L (20.0-31.0); Chloride 105 mMol/L (98-107); Creatinine (Component) 0.7 mg/dL (0.6-1.3); Globulin 2.8 gm/dL (2.3-3.5); Glucose 72 mg/dL (74-106); Osmolality,Calculated 286 (275-295); Potassium 4.7 mMol/L (3.4-5.1); Sodium 144 mMol/L (136-145); Total Protein 7.2 gm/dL (5.7-8.2); eGFR > 60 See Note
[2025-08-07 03:04] LABS: Chenodeoxycholic Acid* 4.8 umol/L (< OR = 3.9); Cholic Acid* 5.4 umol/L (< OR = 2.8); Deoxycholic Acid* 1.2 umol/L (< OR = 2.3)
[2025-08-07 06:26] LABS: Total Bile Acids 11.3 umol/L (< OR = 8.3)
== END | disposition home or self-care (01) ==
LOC: SLDO 14:11
PROVIDERS: Referring Provider Physician Assistant Medical; Visit Provider Physician Assistant Medical
DX: O26.619 Liver and biliary tract disorders in pregnancy, unspecified trimester (principal)
CPT/HCPCS: 36415; 80053; 83789